=== PATIENT | female | born 1950 | race Caucasian/White ===

== ENCOUNTER 2017-12-19 20:55 | Emergency (ER) | payer MEDICARE, BC ==
[2017-12-19 21:12] VITALS: BP 140/64
[2017-12-19] MEDS ORDERED: Albuterol 0.083% 2.5 MG/3 ML Neb Soln NEB ONE (21:50)
--- NOTE | 2017-12-19 22:23 | EDM.PDOC ---
ED HPI GENERAL MEDICAL PROBLEM - General Chief Complaint: General Stated Complaint: BAD COUGH, BLURRED VISION Time Seen by Provider: 12/19/17 22:20 Source of Information: Reports: Patient History Limitations: Reports: No Limitations - History of Present Illness INITIAL COMMENTS - FREE TEXT/NARRATIVE: pt has had coughes and sob since Jun. She has been cioughing up green to yellow sputum. Onset: Gradual, Other ( This has been going on for monthes. ) Duration: Week(s): Location: Reports: Chest, Other (pt has chronic sputtum and a chronic cough. She is sob. ) Associated Symptoms: Reports: Cough, Shortness of Breath - Related Data Allergies Allergy/AdvReac Type Severity Reaction Status Date / Time No Known Allergies Allergy Verified 12/19/17 21:13 Home Meds: Home Meds Fluticasone Furoate [Veramyst] 2 spray NASBOTH DAILY PRN 07/11/13 [History] Imipramine HCl 50 mg PO TID 07/11/13 [History] Omeprazole 20 mg PO DAILY PRN 07/11/13 [History] Fluticasone/Salmeterol [Advair 250-50 Diskus] 1 puff INH BID 12/19/17 [History] Losartan Potassium 50 mg PO DAILY 12/19/17 [History] Montelukast [Singulair] 10 mg PO DAILY 12/19/17 [History] Past Medical History Cardiovascular History: Reports: High Cholesterol, Hypertension Respiratory History: Reports: Other (See Below) Other Respiratory History: undiagnosed lung disease 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: Neurological History: Reports: Migraines - Infectious Disease History Infectious Disease History: Reports: Chicken Pox, Measles, Mumps Social & Family History - Family History Family Medical History: Noncontributory - Tobacco Use Smoking Status *Q: Never Smoker - Caffeine Use Caffeine Use: Reports: Coffee - Recreational Drug Use Recreational Drug Use: No ED ROS GENERAL - Review of Systems Review Of Systems: See Below Constitutional: Reports: Malaise HEENT: Reports: No Symptoms Respiratory: Reports: Shortness of Breath, Cough, Sputum Cardiovascular: Reports: Dyspnea on Exertion Endocrine: Reports: No Symptoms GI/Abdominal: Reports: No Symptoms : Reports: No Symptoms Musculoskeletal: Reports: No Symptoms Skin: Reports: No Symptoms Neurological: Reports: No Symptoms ED EXAM, GENERAL - Physical Exam Exam: See Below Free Text/Narrative:: pt arrived with a history of marked coughing which keeps her awake at nite. She is feeling sob with activity. Her wbc is not elevated. Her sputum does have alot of wbcs in it. Exam Limited By: No Limitations General Appearance: Alert, Mild Distress Ears: Normal TMs Nose: Normal Inspection Throat/Mouth: Normal Inspection Head: Atraumatic Neck: Normal Inspection Respiratory/Chest: Decreased Breath Sounds, Other ( no actual wheezing could be heard. ) Cardiovascular: Regular Rate, Rhythm GI/Abdominal: Soft, Non-Tender (Female) Exam: Deferred Rectal (Female) Exam: Deferred Back Exam: Normal Inspection Extremities: Normal Inspection Neurological: Alert, Oriented, Normal Cognition Psychiatric: Anxious Course - Vital Signs Last Recorded V/S: Last Vital Signs Temp 36.2 C 12/19/17 21:22 Pulse 99 12/19/17 21:22 Resp 16 12/19/17 21:22 BP 140/64 12/19/17 21:22 Pulse Ox 95 12/19/17 21:22 - Orders/Labs/Meds Orders: Active Orders 24 hr Category Date Time Status RT Aerosol Therapy [RC] ASDIRECTED Care 12/19/17 21:51 Active Chest wo Cont [CT] Stat Exams 12/19/17 22:18 Taken CULTURE RESPIRATORY + SMEAR [RM] Stat Lab 12/19/17 22:03 Ordered UA W/MICROSCOPIC [URIN] Urgent Lab 12/19/17 22:44 Ordered Labs: Laboratory Tests 12/19/17 12/19/17 12/19/17 Range/Units 21:37 21:37 21:50 WBC 10.6 (4.5-11.0) K/uL RBC 4.78 (3.30-5.50) M/uL Hgb 14.0 (12.0-15.0) g/dL Hct 42.1 (36.0-48.0) % MCV 88 (80-98) fL MCH 29 (27-31) pg MCHC 33 (32-36) % Plt Count 379 (150-400) K/uL Neut % (Auto) 70 H (36-66) % Lymph % (Auto) 17 L (24-44) % [place] % (Auto) 10 H (2-6) % Eos % (Auto) 3 (2-4) % Baso % (Auto) 0 (0-1) % Sodium 132 L (140-148) mmol/L Potassium 4.3 (3.6-5.2) mmol/L Chloride 97 L (100-108) mmol/L Carbon Dioxide 25 (21-32) mmol/L Anion Gap 14.3 H (5.0-14.0) mmol/L BUN 17 D (7-18) mg/dL Creatinine 1.2 H (0.6-1.0) mg/dL Est Cr Clr Drug Dosing 44.63 mL/min Estimated GFR (MDRD) 45 L (>60) Glucose 130 H (74-106) mg/dL Calcium 9.0 (8.5-10.1) mg/dL Total Bilirubin 0.2 (0.2-1.0) mg/dL AST 22 (15-37) U/L ALT 25 (12-78) U/L Alkaline Phosphatase 110 (46-116) U/L C-Reactive Protein 0.73 H (0.0-0.3) mg/dL NT-Pro-B Natriuret Pep (5-125) pg/mL Total Protein 7.6 (6.4-8.2) g/dL Albumin 3.3 L (3.4-5.0) g/dL Globulin 4.3 H (2.3-3.5) g/dL Albumin/Globulin Ratio 0.8 L (1.2-2.2) Urine Color Urine Appearance Urine pH (4.5-8.0) Ur Specific [place] (1.008-1.030) Urine Protein (NEGATIVE) mg/dL Urine Glucose (UA) (NEGATIVE) mg/dL Urine Ketones (NEGATIVE) mg/dL Urine Occult Blood (NEGATIVE) Urine Nitrite (NEGATIVE) Urine Bilirubin (NEGATIVE) Urine Urobilinogen (NORMAL) mg/dL Ur Leukocyte Esterase (NEGATIVE) Urine RBC (0-5) Urine WBC (0-5) Ur Epithelial Cells Amorphous Sediment Urine Bacteria Urine Mucus 12/19/17 12/19/17 Range/Units 22:44 22:59 WBC (4.5-11.0) K/uL RBC (3.30-5.50) M/uL Hgb (12.0-15.0) g/dL Hct (36.0-48.0) % MCV (80-98) fL MCH (27-31) pg MCHC (32-36) % Plt Count (150-400) K/uL Neut % (Auto) (36-66) % Lymph % (Auto) (24-44) % [place] % (Auto) (2-6) % Eos % (Auto) (2-4) % Baso % (Auto) (0-1) % Sodium (140-148) mmol/L Potassium (3.6-5.2) mmol/L Chloride (100-108) mmol/L Carbon Dioxide (21-32) mmol/L Anion Gap (5.0-14.0) mmol/L BUN (7-18) mg/dL Creatinine (0.6-1.0) mg/dL Est Cr Clr Drug Dosing mL/min Estimated GFR (MDRD) (>60) Glucose (74-106) mg/dL Calcium (8.5-10.1) mg/dL Total Bilirubin (0.2-1.0) mg/dL AST (15-37) U/L ALT (12-78) U/L Alkaline Phosphatase (46-116) U/L C-Reactive Protein (0.0-0.3) mg/dL NT-Pro-B Natriuret Pep 49 (5-125) pg/mL Total Protein (6.4-8.2) g/dL Albumin (3.4-5.0) g/dL Globulin (2.3-3.5) g/dL Albumin/Globulin Ratio (1.2-2.2) Urine Color Yellow Urine Appearance Clear Urine pH 7.0 (4.5-8.0) Ur Specific [place] 1.005 L (1.008-1.030) Urine Protein Negative (NEGATIVE) mg/dL Urine Glucose (UA) Normal (NEGATIVE) mg/dL Urine Ketones Negative (NEGATIVE) mg/dL Urine Occult Blood Negative (NEGATIVE) Urine Nitrite Negative (NEGATIVE) Urine Bilirubin Negative (NEGATIVE) Urine Urobilinogen Normal (NORMAL) mg/dL Ur Leukocyte Esterase Large (NEGATIVE) Urine RBC 0-5 (0-5) Urine WBC 5-10 H (0-5) Ur Epithelial Cells Few Amorphous Sediment Not seen Urine Bacteria Not seen Urine Mucus Not seen Meds: Medications Discontinued Medications Generic Name Dose Route Start Last Admin Trade Name Freq PRN Reason Stop Dose Admin Albuterol 2.5 mg 12/19/17 21:50 12/19/17 21:59 Proventil Neb Soln NEB 12/19/17 21:51 2.5 mg ONETIME ONE Administration - Re-Assessments/Exams Free Text/Narrative Re-Assessment/Exam: 12/19/17 23:00 pt was raising alot of sputum. A culture was obtained which on the gram stain there was alot of wbcs, gram positive cocci and some grame positive rods. A culture is pending. 12/19/17 23:01 Her creatnine is 1.2 and her gfr is 40. A cat scan of the chest was obtained but no contrast was used because of her gfr. 12/19/17 23:37 the cat scan proved to be neg for acute findings. She did have thyroid nodules present. Departure - Departure Time of Disposition: 23:38 Disposition: Home, Self-Care 01 Condition: Fair Clinical Impression: Bronchitis, Bronchospasm - Discharge Information Referrals: Jaguar Kirkpatrick MD [Primary Care Provider] - Forms: ED Department Discharge Care Plan Goals: push fluids, albuterol neb tid and prn when the chest feels tight. Pt will be notified of the sputum culture, appt with Angela De La Vega friday or fri. - My Orders Last 24 Hours: My Active Orders 12/19/17 21:51 RT Aerosol Therapy [RC] ASDIRECTED 12/19/17 22:03 CULTURE RESPIRATORY + SMEAR [RM] Stat 12/19/17 22:18 Chest wo Cont [CT] Stat 12/19/17 22:44 UA W/MICROSCOPIC [URIN] Urgent - Assessment/Plan Last 24 Hours: My Active Orders 12/19/17 21:51 RT Aerosol Therapy [RC] ASDIRECTED 12/19/17 22:03 CULTURE RESPIRATORY + SMEAR [RM] Stat 12/19/17 22:18 Chest wo Cont [CT] Stat 12/19/17 22:44 UA W/MICROSCOPIC [URIN] Urgent
== END 2017-12-20 00:01 | disposition home or self-care (01) ==
LOC: JP.ED 20:55
DX: J40 Bronchitis, not specified as acute or chronic (principal); J98.01 Acute bronchospasm; I10 Essential (primary) hypertension
CPT/HCPCS: 36415; 71250; 80053; 81001; 83880; 85025; 86140; 87070; 87205; 94640; 99284-25

== ENCOUNTER 2020-02-28 07:25 | Day surgery (SDC) | payer MEDICARE, BC ==
[~2020-02-28 07:25] MED LIST: Bupivacaine 0.5% 50 ML MDV ONE; Lidocaine 1% with EPINEPHrine 1:100,000 50 ML MDV ONE
[2020-02-28] MEDS ORDERED: Dexamethasone 4 MG/ML SDV ONE (08:26)
[2020-02-28] MEDS ORDERED: Succinylcholine 200 MG/10 ML MDV ONE (08:26)
[2020-02-28] MEDS ORDERED: Ondansetron 4 MG/2 ML SDV ONE (08:26)
[2020-02-28] MEDS ORDERED: Glycopyrrolate 0.2 MG/ML 5 ML MDV ONE (08:26)
[2020-02-28] MEDS ORDERED: Rocuronium 50 MG/5 ML Vial ONE (08:26)
[2020-02-28] MEDS ORDERED: fentaNYL 250 MCG/5 ML SDV ONE (08:26)
[2020-02-28] MEDS ORDERED: Propofol 200 MG/20 ML SDV ONE (08:26)
[2020-02-28] MEDS ORDERED: Neostigmine Methylsulfate 1 MG/ML 5 ML Syringe ONE (08:26)
[2020-02-28] MEDS ORDERED: metroNIDAZOLE/Normal Saline 500 MG in Premix Bag 1 BAG IV ONE (08:30)
[2020-02-28] MEDS ORDERED: ceFAZolin 2 GM in Premix Bag 1 BAG IV ONE (08:30)
[2020-02-28] MEDS: Sodium Chloride 0.9% 1,000 ML IV SCH ×2 (08:34→14:32)
[2020-02-28] MEDS ORDERED: Ropivacaine 50 ML, dexAMETHasone 8 MG, EPINEPHrine 0.4 MG, Sodium Chloride 0.9% 27.6 ML NERVRT SCH ×4 (08:45)
[2020-02-28] MEDS ORDERED: Acetaminophen/HYDROcodone 325-5 MG Tab PO PRN (08:47)
[2020-02-28] MEDS ORDERED: Docusate Sodium 100 MG Cap PO PRN (08:47)
[2020-02-28] MEDS ORDERED: hydrOXYzine HCL 100 MG/2 ML SDV IM PRN (08:47)
[2020-02-28] MEDS ORDERED: Zolpidem 5 MG Tab PO PRN (08:47)
[2020-02-28] MEDS ORDERED: Benzocaine/Cetylpyridinium/Menthol Lozenge MUCMEM PRN (08:47)
[2020-02-28] MEDS ORDERED: fentaNYL 100 MCG/2 ML SDV IVPUSH PRN (08:48)
[2020-02-28] MEDS ORDERED: Ketorolac 60 MG/2 ML SDV ONE (09:53)
[2020-02-28] MEDS ORDERED: Labetalol 20 MG/4 ML Syringe ONE (10:03)
[2020-02-28] MEDS ORDERED: fentaNYL 100 MCG/2 ML SDV ONE (10:25)
[2020-02-28] MEDS ORDERED: hydrOXYzine HCL 100 MG/2 ML SDV IM ONE (10:43)
[2020-02-28 13:11] VITALS: BP 158/83; PULSE 70
--- NOTE | 2020-02-28 14:50 | OR ---
DATE OF PROCEDURE: 02/28/2020 SURGEON: Kamar Tsang MD PROCEDURE: Laparoscopic cholecystectomy. PREOPERATIVE DIAGNOSES: Cholelithiasis, cholecystitis. POSTOPERATIVE DIAGNOSES: Cholelithiasis, cholecystitis. RISKS: Risks, benefits, alternatives, and limitations including, but not limited to infection, bleeding, and perforation were explained to the patient, who wished to proceed. We also discussed cystic duct leaks, common bile duct injuries, seroma, biloma, hematoma, and other risks not listed here. The patient understands these risks and wishes to proceed. PROCEDURE IN DETAIL: The patient was placed in the supine position. A supraumbilical curvilinear incision was made. A Veress needle was used to enter the abdomen without abnormality and a drop test was performed without abnormality. The abdomen was subsequently insufflated. An additional 10 and two 5 mm ports were entered under direct visualization. The gallbladder was retracted cephalad. The infundibulum was retracted inferolaterally. A "clear view" of the gallbladder was eventually obtained with a single pulsatile structure entering the gallbladder and a single non-pulsatile structure in the gallbladder. These were subsequently clipped x3 and transected. The remaining one third of the gallbladder was removed off the gallbladder bed without difficulty. This was delivered through the superior port through a bag. The gallbladder bed was inspected for minor bleeding and addressed with electrocautery. The pressure would then be dropped to 7 and no venous bleeding was noted. The abdomen was irrigated with approximately 1 L of irrigation, which was removed. The air was removed. The entry point was inspected for enterotomy injury a second time. No evidence was noted. The air was removed. The wounds were closed with 3-0 Vicryl and 4-0 Vicryl in interrupted running fashion. Dermabond was applied. The patient tolerated the procedure well. Kamar Tsang MD /[id number]
--- NOTE | 2020-02-28 16:03 | OR ---
DATE OF PROCEDURE: 02/28/2020 SURGEON: Kamar Tsang MD PROCEDURE: Transversus abdominis plane block bilaterally. COMPLICATION: None. BIRDCAGE ASSEMBLER: None. RISKS: Risks, benefits, alternatives, and limitations including, but not limited to infection, bleeding, injury to abdominal structures were explained to the patient, who wished to proceed. PROCEDURE IN DETAIL: The patient was placed in the supine position. The left transversus plane was identified first. Using 13 megahertz ultrasound probe, the left side was identified, and 90% of the solution was injected. Right side was then performed in a same manner, same fashion, same technique, in the same sequence. The patient tolerated the procedure well. Kamar Tsang MD /[id number]
== END 2020-02-28 16:37 | disposition home or self-care (01) ==
LOC: JP.SDS 07:25 → JP.2SS 08:47 → JP.SDS 16:37
PROVIDERS: ATTEND Surgery
DX: K80.10 Calculus of gallbladder with chronic cholecystitis without obstruction (principal); J45.909 Unspecified asthma, uncomplicated; G47.33 Obstructive sleep apnea (adult) (pediatric); I10 Essential (primary) hypertension; E78.5 Hyperlipidemia, unspecified; E66.9 Obesity, unspecified; Z68.32 Body mass index [BMI] 32.0-32.9, adult
CPT/HCPCS: 36415; 47562; 80053; 85025; A9270; J0171; J0330; J0690; J1100; J1885; J2405; J2704; J2710; J2795; J3010; J3410; J3490; J7030; J7050

== ENCOUNTER 2020-11-05 13:53 | Emergency (ER) | payer MEDICARE, BC ==
[2020-11-05 14:40] VITALS: BP 190/91; PULSE 86
--- NOTE | 2020-11-05 15:18 | EDM.PDOC ---
ED HPI GENERAL MEDICAL PROBLEM - General Chief Complaint: ENT Problem Stated Complaint: TOOTHACHE Time Seen by Provider: 11/05/20 14:50 Source of Information: Reports: Patient History Limitations: Reports: No Limitations - History of Present Illness INITIAL COMMENTS - FREE TEXT/NARRATIVE: 70-year-old female with a right mandibular dental pain for the past 4 days, worsening despite taking anti-inflammatories and leftover oxycodone. No fevers or chills, no significant swelling. Onset: Gradual Duration: Day(s): (Symptoms for 4 days) Location: Reports: Other (Right mandible) Worsens with: Reports: Eating Associated Symptoms: Reports: No Other Symptoms Tooth/Teeth Pain Score (Numeric/FACES): 10 - Related Data Allergies Allergy/AdvReac Type Severity Reaction Status Date / Time No Known Allergies Allergy Verified 11/05/20 14:39 Home Meds: Home Meds Imipramine HCl 150 mg PO BEDTIME 07/11/13 [History] Omeprazole 40 mg PO DAILY PRN 07/11/13 [History] Losartan Potassium 50 mg PO DAILY 12/19/17 [History] Albuterol [Proventil Neb Soln] 0.63 mg NEB QID PRN 04/13/18 [History] Fluticasone Propion/Salmeterol [Advair 250-50 Diskus] 1 puff IH BID 04/15/18 [History] Mometasone/Ipratropium/Diphenh 1 spray NASBOTH BID 04/15/18 [History] Magnesium Oxide 400 mg PO DAILY 02/24/20 [History] Naltrexone 50 mg PO DAILY 02/24/20 [History] Pravastatin Sodium [Pravastatin (Pravachol)] 40 mg PO BEDTIME 02/24/20 [History] buPROPion [Wellbutrin] 75 mg PO DAILY 02/24/20 [History] rOPINIRole [Requip] 0.25 mg PO DAILY PRN 02/24/20 [History] Past Medical History HEENT History: Reports: Allergic Rhinitis, Impaired Vision Other HEENT History: wears glasses Cardiovascular History: Reports: High Cholesterol, Hypertension Respiratory History: Reports: Asthma, Sleep Apnea Other Respiratory History: undiagnosed lung disease Gastrointestinal History: Reports: GERD Genitourinary History: Reports: None 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: Musculoskeletal History: Reports: Arthritis Neurological History: Reports: Migraines Psychiatric History: Reports: Depression Endocrine/Metabolic History: Reports: Obesity/BMI 30+ Hematologic History: Reports: Blood Transfusion(s) - Infectious Disease History Infectious Disease History: Reports: Chicken Pox, Measles, Mumps, Novel Coronavirus - Past Surgical History HEENT Surgical History: Reports: Cataract Surgery, Tonsillectomy Cardiovascular Surgical History: Reports: None Respiratory Surgical History: Reports: None GI Surgical History: Reports: Colonoscopy, Other (See Below) Other GI Surgeries/Procedures: abdominal surgery with mesh Female Surgical History: Reports: Section, Hysterectomy, Salpingo- Oophorectomy, Tubal Ligation Endocrine Surgical History: Reports: None Neurological Surgical History: Reports: None Musculoskeletal Surgical History: Reports: None Social & Family History - Family History Family Medical History: No Pertinent Family History HEENT: Reports: Other (See Below) Other HEENT Family History: sinus surgery Cardiac: Reports: High Cholesterol, Hypertension, ID Respiratory: Reports: Asthma, Sleep Apnea : Reports: Renal Disease/Insufficiency Musculoskeletal: Reports: Arthritis Neurological: Reports: Dementia, Migraines, Seizure Psychiatric: Reports: Depression Endocrine/Metabolic: Reports: Hypothyroidism Oncologic: Reports: Skin - Tobacco Use Tobacco Use Status *Q: Never Tobacco User - Caffeine Use Caffeine Use: Reports: Coffee, Soda, Tea - Alcohol Use Days Per Week of Alcohol Use: 0 - Recreational Drug Use Recreational Drug Use: No ED ROS ENT - Review of Systems Review Of Systems: See Below Constitutional: Denies: Fever, Chills HEENT: Reports: Dental Pain Respiratory: Denies: Shortness of Breath, Cough Cardiovascular: Denies: Chest Pain GI/Abdominal: Denies: Nausea, Vomiting Neurological: Reports: No Symptoms ED EXAM, ENT - Physical Exam Exam: See Below Exam Limited By: No Limitations General Appearance: Alert, No Apparent Distress Mouth/Throat: Other (No significant gingival erythema or swelling, however she is very tender to percussion of the first molar on the right mandible which has a crown) Head: Atraumatic Respiratory/Chest: No Respiratory Distress Neurological: Alert, Oriented Psychiatric: Normal Affect, Normal Mood Skin: Warm, Dry Course - Vital Signs Last Recorded V/S: Last Vital Signs Temp 97.8 F 11/05/20 14:48 Pulse 86 11/05/20 14:48 Resp 16 11/05/20 14:48 BP 190/91 H 11/05/20 14:48 Pulse Ox 98 11/05/20 14:48 - Re-Assessments/Exams Free Text/Narrative Re-Assessment/Exam: 11/05/20 15:15 This patient likely has an abscess under the crown of the molar on the right mandible. She was started on penicillin VK 500, 4 times daily, will continue anti-inflammatories and oxycodone and contact the dentist office tomorrow. She can return if worsening despite treatment. Departure - Departure Time of Disposition: 15:39 Disposition: Home, Self-Care 01 Clinical Impression: Dental abscess - Discharge Information Instructions: Dental Abscess, [id number] Referrals: Estee Contreras PA-C [Primary Care Provider] - Forms: ED Department Discharge Care Plan Goals: Take antibiotic as prescribed, continue with anti-inflammatories and oxycodone for pain control and get into the dentist this week if possible, call tomorrow for an appointment time. Return to the emergency room if worsening such as jaw swelling, fever, or vomiting the medication. Sepsis Event Note (ED) - Evaluation Sepsis Screening Result: No Definite Risk - Focused Exam Vital Signs: Vital Signs Temp Pulse Resp BP Pulse Ox 11/05/20 14:48 97.8 F 86 16 190/91 H 98 11/05/20 14:39 97.8 F 86 16 190/91 H 98
== END 2020-11-05 15:38 | disposition home or self-care (01) ==
LOC: JP.ED 13:53
DX: K04.7 Periapical abscess without sinus (principal); E78.00 Pure hypercholesterolemia, unspecified; I10 Essential (primary) hypertension; K21.9 Gastro-esophageal reflux disease without esophagitis; E66.9 Obesity, unspecified; Z68.30 Body mass index [BMI] 30.0-30.9, adult; Z79.899 Other long term (current) drug therapy
CPT/HCPCS: 99282

== ENCOUNTER 2021-10-07 13:33 | Emergency (ER) | payer MEDICARE, BC ==
[2021-10-07 13:50] VITALS: BP 132/58; PULSE 92
[2021-10-07] MEDS ORDERED: Sodium Chloride 0.9% 10 ML Syringe FLUSH PRN (14:14)
[2021-10-07 14:56] LABS: TROPONIN I HIGH SENSITIVITY 7.8 pg/mL (<=60.3)
[2021-10-07] MEDS ORDERED: predniSONE 20 MG Tab PO ONE ×2 (16:20→16:24)
== END 2021-10-07 16:52 | disposition home or self-care (01) ==
LOC: JP.ED 13:33
DX: U07.1 COVID-19 (principal); J45.901 Unspecified asthma with (acute) exacerbation; E78.00 Pure hypercholesterolemia, unspecified; I10 Essential (primary) hypertension; K21.9 Gastro-esophageal reflux disease without esophagitis; E66.9 Obesity, unspecified; Z68.36 Body mass index [BMI] 36.0-36.9, adult; Z86.16 Personal history of COVID-19; Z79.899 Other long term (current) drug therapy
CPT/HCPCS: 36415; 71045; 80053; 84484; 85025; 85379; 86140; 93005; 93010; 99283; 99285-25; J7512

== ENCOUNTER 2022-10-28 16:07 | Emergency (ER) | payer MEDICARE, BC ==
[2022-10-28] MEDS ORDERED: Albuterol 0.083% 2.5 MG/3 ML Neb Soln NEB ONE (16:47)
[2022-10-28 17:04] LABS: BASOPHILS PERCENT AUTO 0.2 % (0.1-1.3); HEMATOCRIT 45.4 % (34.3-46.0); HEMOGLOBIN 15.3 g/dL (11.2-15.5); IMMATURE GRAN ABSOLUTE AUTO 0.07 K/uL (0.00-0.23); IMMATURE GRAN PERCENT AUTO 0.6 % (0.0-0.7); LYMPHOCYTES ABSOLUTE AUTO 2.06 K/uL (0.8-3.3); LYMPHOCYTES PERCENT AUTO 17.3 % (11.4-47.7); MEAN CORPUSCULAR HEMOGLOBIN 30.4 pg (31.6-35.5); MEAN CORPUSCULAR HGB CONC 33.7 g/dL (31.6-35.5); MEAN CORPUSCULAR VOLUME 90.3 fL (81.4-99.0); MONOCYTES ABSOLUTE AUTO 1.15 K/uL (0.20-0.90); MONOCYTES PERCENT AUTO 9.7 % (3.3-12.6); NEUTROPHILS ABSOLUTE AUTO 8.61 K/uL (1.0-7.6); NEUTROPHILS PERCENT AUTO 72.2 % (40.0-78.1); PLATELET COUNT,PLT 307 K/uL (130-375); RED BLOOD CELL COUNT 5.03 M/uL (3.77-5.24); WHITE BLOOD CELL COUNT,WBC 11.9 K/uL (3.2-11.0)
[2022-10-28 17:05] LABS: BASOPHILS ABSOLUTE AUTO 0.02 K/uL (0.00-0.10)
[2022-10-28 17:24] LABS: A/G RATIO 0.8 (1.2-2.2); ALANINE AMINOTRANSFERASE,ALT 24 U/L (12-78); ALBUMIN 3.5 g/dL (3.4-5.0); ALKALINE PHOSPHATASE 89 U/L (46-116); ASPARTATE AMNIOTRANSFERASE,AST 21 U/L (15-37); BILIRUBIN TOTAL 0.3 mg/dL (0.2-1.0); BLOOD UREA NITROGEN,BUN 20 mg/dL (7-18); CALCIUM 9.1 mg/dL (8.5-10.1); CARBON DIOXIDE,CO2 30 mmol/L (21-32); CHLORIDE,CL 95 mmol/L (100-108); ESTIMATED GFR 59 mL/min (>60); GLUCOSE RANDOM 109 mg/dL (74-106); POTASSIUM,K 4.1 mmol/L (3.6-5.2); PROTEIN TOTAL,TP 7.9 g/dL (6.4-8.2); SODIUM,NA 131 mmol/L (140-148)
[2022-10-28 17:25] LABS: ANION GAP 10.1 mmol/L (5.0-14.0)
[2022-10-28 17:49] VITALS: BP 167/85; PULSE 89
== END 2022-10-28 18:27 | disposition home or self-care (01) ==
LOC: JP.ED 16:07
DX: J40 Bronchitis, not specified as acute or chronic (principal); E78.00 Pure hypercholesterolemia, unspecified; I10 Essential (primary) hypertension; K21.9 Gastro-esophageal reflux disease without esophagitis; E66.9 Obesity, unspecified; Z86.16 Personal history of COVID-19; Z79.899 Other long term (current) drug therapy; Z68.37 Body mass index [BMI] 37.0-37.9, adult
CPT/HCPCS: 36415; 71046; 80053; 83735; 85025; 94640; 99283; 99285

== ENCOUNTER 2022-10-31 01:33 | Emergency (ER) | payer MEDICARE, BC ==
[2022-10-31 01:57] LABS: BASOPHILS ABSOLUTE AUTO 0.04 K/uL (0.00-0.10); BASOPHILS PERCENT AUTO 0.4 % (0.1-1.3); EOSINOPHILS ABSOLUTE AUTO 0.11 K/uL (0.00-0.40); HEMATOCRIT 45.8 % (34.3-46.0); HEMOGLOBIN 15.4 g/dL (11.2-15.5); IMMATURE GRAN ABSOLUTE AUTO 0.06 K/uL (0.00-0.23); IMMATURE GRAN PERCENT AUTO 0.6 % (0.0-0.7); LYMPHOCYTES ABSOLUTE AUTO 2.24 K/uL (0.8-3.3); LYMPHOCYTES PERCENT AUTO 21.3 % (11.4-47.7); MEAN CORPUSCULAR HEMOGLOBIN 30.1 pg (31.6-35.5); MEAN CORPUSCULAR HGB CONC 33.6 g/dL (31.6-35.5); MEAN CORPUSCULAR VOLUME 89.6 fL (81.4-99.0); MONOCYTES ABSOLUTE AUTO 1.22 K/uL (0.20-0.90); MONOCYTES PERCENT AUTO 11.6 % (3.3-12.6); NEUTROPHILS ABSOLUTE AUTO 6.87 K/uL (1.0-7.6); NEUTROPHILS PERCENT AUTO 65.1 % (40.0-78.1); PLATELET COUNT,PLT 316 K/uL (130-375); RED BLOOD CELL COUNT 5.11 M/uL (3.77-5.24); WHITE BLOOD CELL COUNT,WBC 10.5 K/uL (3.2-11.0)
[2022-10-31] MEDS ORDERED: Albuterol/Ipratropium 3.0-0.5 MG/3 ML Neb Soln NEB ONE (02:13)
[2022-10-31] MEDS ORDERED: hydrALAZINE 25 MG Tab PO STA (02:13)
[2022-10-31 03:14] VITALS: BP 158/70; PULSE 93
== END 2022-10-31 03:38 | disposition home or self-care (01) ==
LOC: JP.ED 01:33
DX: J45.41 Moderate persistent asthma with (acute) exacerbation (principal); I10 Essential (primary) hypertension; E78.00 Pure hypercholesterolemia, unspecified; K21.9 Gastro-esophageal reflux disease without esophagitis; E66.9 Obesity, unspecified; Z68.36 Body mass index [BMI] 36.0-36.9, adult; Z86.16 Personal history of COVID-19; Z79.899 Other long term (current) drug therapy; Z98.890 Other specified postprocedural states
CPT/HCPCS: 36415; 85025; 86140; 94640; 99285; A9270; J7620

== ENCOUNTER 2024-10-14 15:27 | Emergency (ER) | payer MEDICARE, BC ==
[2024-10-14 15:47] LABS: BASOPHILS ABSOLUTE AUTO 0.05 K/uL (0.00-0.10); BASOPHILS PERCENT AUTO 0.7 % (0.1-1.3); EOSINOPHILS ABSOLUTE AUTO 0.13 K/uL (0.00-0.40); EOSINOPHILS PERCENT AUTO 1.7 % (0.0-5.4); HEMATOCRIT 47.5 % (34.3-46.0); HEMOGLOBIN 15.7 g/dL (11.2-15.5); IMMATURE GRAN PERCENT AUTO 0.3 % (0.0-0.7); LYMPHOCYTES ABSOLUTE AUTO 1.34 K/uL (0.8-3.3); LYMPHOCYTES PERCENT AUTO 17.9 % (11.4-47.7); MEAN CORPUSCULAR HEMOGLOBIN 31.6 pg (31.6-35.5); MEAN CORPUSCULAR HGB CONC 33.1 g/dL (31.6-35.5); MEAN CORPUSCULAR VOLUME 95.6 fL (81.4-99.0); MONOCYTES ABSOLUTE AUTO 0.74 K/uL (0.20-0.90); MONOCYTES PERCENT AUTO 9.9 % (3.3-12.6); NEUTROPHILS PERCENT AUTO 69.5 % (40.0-78.1); PLATELET COUNT,PLT 316 K/uL (130-375); RED BLOOD CELL COUNT 4.97 M/uL (3.77-5.24); WHITE BLOOD CELL COUNT,WBC 7.5 K/uL (3.2-11.0)
[2024-10-14 16:21] LABS: A/G RATIO 0.8 (1.2-2.2); ALANINE AMINOTRANSFERASE,ALT 18 U/L (12-78); ALBUMIN 3.2 g/dL (3.4-5.0); ALKALINE PHOSPHATASE 80 U/L (46-116); ASPARTATE AMNIOTRANSFERASE,AST 13 U/L (15-37); BILIRUBIN TOTAL 0.5 mg/dL (0.2-1.0); BLOOD UREA NITROGEN,BUN 16 mg/dL (7-18); CARBON DIOXIDE,CO2 28 mmol/L (21-32); CHLORIDE,CL 97 mmol/L (100-108); CREATININE 1.1 mg/dL (0.6-1.0); ESTIMATED GFR 52 mL/min (>60); GLUCOSE RANDOM 120 mg/dL (74-106); MAGNESIUM 1.9 mg/dL (1.8-2.4); POTASSIUM,K 4.6 mmol/L (3.6-5.2); PRO B-TYPE NATRIUR PEPT,BNPPRO 411 pg/mL (5-450); SODIUM,NA 135 mmol/L (140-148); TROPONIN I HIGH SENSITIVITY 6.4 pg/mL (<=60.3)
[2024-10-14 16:22] LABS: ANION GAP 14.6 mmol/L (5.0-14.0)
[2024-10-14 16:24] LABS: IMMATURE GRAN ABSOLUTE AUTO 0.02 K/uL (0.00-0.23)
[2024-10-14] MEDS: Sodium Chloride 0.9% 1,000 ML IV SCH ×2 (17:32→18:51)
[2024-10-14 19:34] VITALS: BP 149/75; PULSE 101
[2024-10-14 19:58] LABS: APPEARANCE,URINE CLEAR (CLEAR); BILIRUBIN,URINE NEGATIVE (NEGATIVE); COLOR,URINE YELLOW (YELLOW); GLUCOSE,URINE 500 mg/dL (NEGATIVE); KETONES,URINE NEGATIVE (NEGATIVE); LEUKOCYTE ESTERASE,URINE MODERATE (NEGATIVE); NITRITE,URINE NEGATIVE (NEGATIVE); OCCULT BLOOD,URINE TRACE-LYSED (NEGATIVE); PROTEIN,URINE NEGATIVE (NEGATIVE); UROBILINOGEN,URINE 0.2 EU/dL (0.2-1.0)
[2024-10-14 20:06] LABS: AMORPHOUS SEDIMENT,URINE NOT SEEN; BACTERIA,URINE FEW; EPITHELIAL CELLS,URINE FEW; MUCUS,URINE NOT SEEN; RBC,URINE 0-5 (0-5)
== END 2024-10-14 20:15 | disposition home or self-care (01) ==
LOC: JP.ED 15:27
DX: I95.1 Orthostatic hypotension (principal); I10 Essential (primary) hypertension; E78.00 Pure hypercholesterolemia, unspecified; J45.909 Unspecified asthma, uncomplicated; K21.9 Gastro-esophageal reflux disease without esophagitis; R06.9 Unspecified abnormalities of breathing; Z86.16 Personal history of COVID-19; Z90.710 Acquired absence of both cervix and uterus; Z79.51 Long term (current) use of inhaled steroids; Z79.899 Other long term (current) drug therapy
CPT/HCPCS: 36415; 71045; 80053; 80307; 81001; 83605; 83735; 83880; 84484; 85025; 87086; 93005; 96360; 96361; 99285; J7030

== ENCOUNTER 2025-05-14 19:32 | Emergency (ER) | payer MEDICARE, BC ==
[2025-05-14 20:15] LABS: BASOPHILS ABSOLUTE AUTO 0.05 K/uL (0.00-0.10); BASOPHILS PERCENT AUTO 0.6 % (0.1-1.3); EOSINOPHILS ABSOLUTE AUTO 0.25 K/uL (0.00-0.40); EOSINOPHILS PERCENT AUTO 3.2 % (0.0-5.4); IMMATURE GRAN PERCENT AUTO 0.3 % (0.0-0.7); LYMPHOCYTES ABSOLUTE AUTO 1.46 K/uL (0.8-3.3); LYMPHOCYTES PERCENT AUTO 18.6 % (11.4-47.7); MONOCYTES ABSOLUTE AUTO 0.79 K/uL (0.20-0.90); MONOCYTES PERCENT AUTO 10.1 % (3.3-12.6); NEUTROPHILS ABSOLUTE AUTO 5.26 K/uL (1.0-7.6); NEUTROPHILS PERCENT AUTO 67.2 % (40.0-78.1); PLATELET COUNT,PLT 242 K/uL (130-375); RED BLOOD CELL COUNT 4.53 M/uL (3.77-5.24); WHITE BLOOD CELL COUNT,WBC 7.8 K/uL (3.2-11.0)
[2025-05-14 20:16] LABS: IMMATURE GRAN ABSOLUTE AUTO 0.02 K/uL (0.00-0.23)
[2025-05-14 20:38] LABS: A/G RATIO 0.9 (1.2-2.2); ALANINE AMINOTRANSFERASE,ALT 22 U/L (12-78); ASPARTATE AMNIOTRANSFERASE,AST 17 U/L (15-37); BILIRUBIN TOTAL 0.4 mg/dL (0.2-1.0); BLOOD UREA NITROGEN,BUN 22 mg/dL (7-18); CARBON DIOXIDE,CO2 30 mmol/L (21-32); CHLORIDE,CL 96 mmol/L (100-108); CREATININE 1.2 mg/dL (0.6-1.0); ESTIMATED GFR 47 mL/min (>60); GLUCOSE RANDOM 116 mg/dL (74-106); POTASSIUM,K 4.2 mmol/L (3.6-5.2); PROTEIN TOTAL,TP 6.9 g/dL (6.4-8.2); SODIUM,NA 133 mmol/L (140-148); TROPONIN I HIGH SENSITIVITY 5.2 pg/mL (<=60.3)
[2025-05-14 20:46] VITALS: BP 108/48; PULSE 69
== END 2025-05-14 21:13 | disposition home or self-care (01) ==
LOC: JP.ED 19:32
DX: I44.7 Left bundle-branch block, unspecified (principal); I10 Essential (primary) hypertension; E78.00 Pure hypercholesterolemia, unspecified; Z79.899 Other long term (current) drug therapy; Z86.16 Personal history of COVID-19
CPT/HCPCS: 36415; 71046; 80053; 83880; 84484; 85025; 93005; 99285; A9270; 93010; 99284